=== PATIENT | female | born 1945 | race Caucasian/White ===

== ENCOUNTER 2017-12-16 23:35 | Emergency (ER) | payer OTHER ==
--- NOTE | 2017-12-16 23:39 | EDPHY ---
H & P Time Seen by Provider: 12/16/17 23:38 HPI/ROS: HPI: This is a 72-year-old female presents with Chief Complaint: Weakness/bronchitis Location: Chest Quality: Cough Duration: 10 days Signs and Symptoms: no shortness of breath at rest, + shortness of breath on exertion, + productive cough of aslguero sputum, no chest pain, no palpitations, no lower extremity edema, no wheezing, no orthopnea, no paroxysmal nocturnal dyspnea, no fever, no injury/trauma, no hemoptysis, + yellow nasal discharge Timing: Worsening Severity: Moderate Context: Patient has a history of VT, LBBB and CVA x2 is here visiting from [place]. She flew on airplane. She reports that she has had 10 day history of productive cough green yellow nasal discharge and weakness that has been gradually worsening. Patient is a nonsmoker. Denies chest pain/fever/ abdominal pain/nausea/vomiting/urinary symptoms/lower extremity edema. Did not receive her influenza vaccine this year. She is very upset that she is not able to attend a libertarian that is scheduled tonight as she feels so terrible. Patient admits to taking almost a half bottle of Mucinex today as well as Sudafed. Modifying Factors: Mucinex and Sudafed Comment: ROS: see HPI Constitutional: No fever, no chills, no weight loss Eyes: No blurred vision Respiratory: No shortness of breath, + cough Cardiovascular: No chest pain, no palpitations, no lower extremity edema Gastrointestinal: No nausea, no vomiting, no diarrhea Genitourinary: No dysuria Extremities: No myalgias Neurologic: No weakness, no numbness Skin: No rashes Hematologic: No bruising, no bleeding MEDICAL/SURGICAL/SOCIAL HISTORY: Medical history: CVA, AMI, hypertension Surgical history: Denies Social history: Lives in [place]. CONSTITUTIONAL: awake and alert, no obvious distress HEENT: Atraumatic and normocephalic, PERRL, EOMI. Tympanic membranes clear. Oropharynx clear, no exudate and moist pink mucosa. Airway patent. No lymphadenopathy. No meningismus. Cardiovascular: Normal S1/S2, regular rate, regular rhythm, without murmur rub or gallop. PULMONARY/CHEST: Symmetrical and nontender. Clear to auscultation bilaterally. Good air movement. No accessory muscle usage. ABDOMEN: Soft, nondistended, nontender, no rebound, no guarding, no peritoneal signs, no masses or organomegaly. No CVAT. EXTREMITIES: 2/2 pulses, strength 5/5, no deformities, no clubbing, no cyanosis or edema. NEUROLOGICAL: no focal neuro deficits. GCS 15. SKIN: Warm and dry, no erythema. no rash. Good capillary refill. Source: Patient Exam Limitations: No limitations Constitutional: Initial Vital Signs Temperature (C) 37.5 C 12/16/17 23:41 Heart Rate 98 12/16/17 23:41 Respiratory Rate 18 12/16/17 23:41 Blood Pressure 187/100 H 12/16/17 23:41 O2 Sat (%) 98 12/16/17 23:41 O2 Delivery Mode Room Air Allergies/Adverse Reactions: No Known Allergies Allergy (Unverified 12/16/17 23:40) Home Medications: Medication Instructions Recorded Amlodipine Besylate 12/16/17 Lisinopril 12/16/17 Benzonatate [Tessalon Pearles (RX)] 100 mg PO Q4 PRN #15 cap 12/17/17 levOFLOXACIN [levAQUIN (*)] 750 mg PO DAILY #7 tab 12/17/17 oxyCODONE/APAP 5/325 [Percocet 1 - 2 tab PO Q6H PRN #10 tab 12/17/17 5/325 (*)] Medical Decision Making - Diagnostics EKG Interpretation: 12 lead EKG: Indication: Weakness Rhythm: Normal sinus rhythm, rate 86 beats per minute [place]: Left Intervals: Normal QRS: Left bundle-branch block ST segments: Nonspecific changes T segment: Nonspecific changes INTERPRETATION: No acute ischemic changes, PAC The 12 lead EKG was interpreted by myself and with attending. Imaging Results: Imaging Impressions Chest X-Ray 12/16/17 23:42 Impression: Suspect airways disease with superimposed right lower lobe pneumonia. ED Course/Re-evaluation: Chest x-ray, EKG, labs, urinalysis, IV fluids, IV medications ordered Afebrile. Mild tachycardia. No hypoxia. Given 1 L normal saline, Tessalon Perles, IV Solu-Medrol Urinalysis shows trace ketones, no signs of infection Labs reviewed; leukocytosis 19 K noted, troponin unremarkable, proBNP high normal D-dimer 0.55 CTA chest ordered and chest x-ray cancelled Influenza A positive; not Tamiflu candidate as symptoms have been present for 10 days EKG shows left bundle-branch (old) but no acute ischemic changes Called by radiologist who advised that CTA shows no evidence of pulmonary embolism, bilateral pneumonia, adrenal nodules that need MRI follow up outpatient. IV Levaquin given. 0150: Reassessed patient. Complaining of mild headache; Tylenol given. Daughter at bedside. Offered patient admission for influenza pneumonia but she politely declines that she feels better. O2 sats are 94% on room air. Curb 65 score is 1 point which is low risk for mortality and community-acquired pneumonia. Patient is appropriate to treat outpatient with close follow-up. This patient was seen under the supervision of my secondary supervising physician. I evaluated care for this patient independently. Discussed this patient with Dr. Carrillo who did not see the patient. Patient's presentation, labs/imaging, treatment and plan of care were discussed with secondary supervising physician. Differential Diagnosis: Weakness including but not limited to electrolyte abnormality, depression, anxiety, CVA, spinal cord abnormality, and infectious causes. - Data Points Laboratory Results: Laboratory Results 12/16/17 23:45 12/16/17 23:45 Medications Given: Discontinued Medications Acetaminophen (Tylenol) 650 mg PO EDNOW ONE Stop: 12/17/17 02:25 Last Admin: 12/17/17 03:06 Dose: 650 mg Benzonatate (Tessalon Pearles) 200 mg PO EDNOW ONE Stop: 12/16/17 23:53 Last Admin: 12/16/17 23:58 Dose: 200 mg Benzonatate (Tessalon Pearles) 200 mg PO EDNOW ONE Stop: 12/17/17 02:01 Last Admin: 12/17/17 03:05 Dose: 200 mg Sodium Chloride (Ns) 1,000 mls @ 0 mls/hr IV ONCE ONE; Wide Open PRN Reason: Protocol Stop: 12/16/17 23:43 Last Admin: 12/16/17 23:46 Dose: 1,000 mls Levofloxacin/Dextrose (Levaquin 750 Mg (Premix)) 150 mls @ 100 mls/hr IV EDNOW ONE PRN Reason: Protocol Stop: 12/17/17 03:20 Last Admin: 12/17/17 02:09 Dose: 150 mls Sodium Chloride (Ns) 1,000 mls @ 0 mls/hr IV EDNOW ONE; Wide Open PRN Reason: Protocol Stop: 12/17/17 02:31 Last Admin: 12/17/17 03:03 Dose: 1,000 mls Methylprednisolone Sodium Succinate (Solu-Medrol) 60 mg IVP EDNOW ONE Stop: 12/16/17 23:43 Last Admin: 12/16/17 23:58 Dose: 60 mg Departure - Departure Disposition: Home, Routine, Self-Care Clinical Impression: Influenza A with pneumonia Condition: Good Instructions: Influenza (ED), Community Acquired Pneumonia (ED) Additional Instructions: Rest as much as possible until you are feeling better. Consume a minimum of 8-10 glasses of water or electrolyte fluid replacement drinks that include Gatorade, Powerade, Pedialyte. Take all medications as directed until complete. Return to the emergency room if any time you developed worsening shortness of breath, chest pain. Referrals: [facility],. [Clinic] - As per Instructions Stand Alone Forms: Airline Excuse Prescriptions: Benzonatate [Tessalon Pearles (RX)] 100 mg PO Q4 PRN #15 cap PRN Reason: Cough, Moderate levOFLOXACIN [levAQUIN (*)] 750 mg PO DAILY #7 tab oxyCODONE/APAP 5/325 [Percocet 5/325 (*)] 1 - 2 tab PO Q6H PRN #10 tab PRN Reason: Pain, Severe
[2017-12-16] MEDS ORDERED: NS 1,000 ML IV ONE (23:42)
[2017-12-16] MEDS ORDERED: methylPREDNISolone SOD SUCC 125 MG/2 ML VIAL IVP ONE (23:42)
[2017-12-16 23:50] LABS: PLATELET COUNT 265 10^3/uL (150-400)
[2017-12-16] MEDS ORDERED: BENZONATATE 100 MG CAP PO ONE (23:52)
[2017-12-17] MEDS ORDERED: IOPAMIDOL (ISOVUE 370) 100 ML BTL IV ONE ×2 (00:38→00:56)
--- NOTE | 2017-12-17 01:28 | CPEKG ---
Heart Rate: 86 RR Interval: 698 P-R Interval: 164 QRSD Interval: 152 QT Interval: 444 QTC Interval: 531 P Cylinder: 37 QRS Cylinder: -20 T Wave Cylinder: 130 EKG Severity - ABNORMAL ECG - EKG Impression: SINUS RHYTHM EKG Impression: ATRIAL PREMATURE COMPLEX EKG Impression: LEFT BUNDLE BRANCH BLOCK Electronically Signed By: Hai Carrillo 17-Dec-2017 07:03:21
[2017-12-17] MEDS ORDERED: BENZONATATE 100 MG CAP PO ONE (02:00)
[2017-12-17] MEDS ORDERED: ACETAMINOPHEN 325 MG TAB PO ONE (02:24)
[2017-12-17 02:25] VITALS: PULSE 84
[2017-12-17] MEDS ORDERED: NS 1,000 ML IV ONE (02:30)
[2017-12-17 03:43] VITALS: BP 146/89; RESP 16; TEMP 98.2; O2SAT 96
== END 2017-12-17 03:45 | disposition home or self-care (01) ==
DX: J10.00 Influenza due to other identified influenza virus with unspecified type of pneumonia (principal); E86.9 Volume depletion, unspecified; I10 Essential (primary) hypertension; I25.2 Old myocardial infarction; Z86.73 Personal history of transient ischemic attack (TIA), and cerebral infarction without residual deficits
CPT/HCPCS: 71046; 71275; 93005; 96361; 96365; 96375; 99285; J1956; J2930; Q9967